=== PATIENT | female | born 1965 | race Hispanic/Latino ===

== ENCOUNTER → 2018-02-03 | Outpatient (CLI) | payer BC | LOC: LAB 08:30 | PROVIDERS: ATTEND Internal Medicine | DX: A04.72 Enterocolitis due to Clostridium difficile, not specified as recurrent (principal); K57.30 Diverticulosis of large intestine without perforation or abscess without bleeding; K30 Functional dyspepsia; K64.1 Second degree hemorrhoids; I10 Essential (primary) hypertension; E66.9 Obesity, unspecified; Z71.3 Dietary counseling and surveillance | CPT/HCPCS: 86677; 86704; 86705; 86708; 86803; 87340 ==

== ENCOUNTER 2024-07-06 12:09 | Emergency (ER) | payer BC, OTHER ==
[~2024-07-06] VITALS: Ht 160 cm; Wt 96.8 kg
[2024-07-06 12:15] VITALS: TEMP 97.9
[2024-07-06 12:36] LABS: BASOPHILS % 0.5 % (0.0-1.0); EOSINOPHILS # (AUTO) 0.5 (0.0-0.4); EOSINOPHILS % 5.4 % (0.0-6.0); HEMOGLOBIN 13.7 g/dL (12.0-16.0); LYMPHOCYTES # (AUTO) 3.1 (1.0-3.2); MEAN CORPUSCULAR HEMOGLOBIN 25.7 pg (28-32); MEAN CORPUSCULAR HGB CONC 32.6 g/dL (31-35); MEAN CORPUSCULAR VOLUME 78.7 fL (81-99); MONOCYTES # (AUTO) 0.6 (0.2-0.8); MONOCYTES % 6.8 % (4.4-11.3); NEUTROPHILS # (AUTO) 4.6 (2.1-6.9); NEUTROPHILS % 52.1 % (38.7-80.0); PLATELET COUNT 275 x10e3/uL (140-360); RED BLOOD COUNT 5.34 x10e6/uL (3.6-5.1); RED CELL DISTRIBUTION WIDTH 14.6 % (11.7-14.4); WHITE BLOOD COUNT 8.74 x10e3/uL (4.8-10.8)
[2024-07-06 12:44] LABS: INR 1.1; PROTHROMBIN TIME 14.9 seconds (11.9-14.5)
[2024-07-06 12:45] LABS: PARTIAL THROMBOPLASTIN TIME 31.6 seconds (23.8-35.5)
[2024-07-06 12:53] LABS: ALBUMIN 4.7 g/dL (3.5-5.0); ALBUMIN/GLOBULIN RATIO 1.3 (0.8-2.0); ANION GAP 16.6 mmol/L (8-16); BILIRUBIN,TOTAL 0.4 mg/dL (0.2-1.2); CALCIUM 9.7 mg/dL (8.4-10.2); CREATININE, SERUM 1.35 mg/dL (0.57-1.11); POTASSIUM 3.6 mmol/L (3.5-5.1); TOTAL PROTEIN 8.4 g/dL (6.5-8.1)
[2024-07-06 13:00] LABS: TROPONIN I 0.001 ng/mL (0-0.300)
[2024-07-06 13:05] VITALS: PULSE 85; RESP 16; O2SAT 100
[2024-07-06] MEDS ORDERED: METHOCARBAMOL750 MG PO (14:18)
== END 2024-07-06 15:05 | disposition home or self-care (01) ==
LOC: ER 13:12
DX: R06.02 Shortness of breath (principal); M79.661 Pain in right lower leg; M62.831 Muscle spasm of calf; I10 Essential (primary) hypertension; E78.5 Hyperlipidemia, unspecified; K76.9 Liver disease, unspecified; J45.909 Unspecified asthma, uncomplicated; D64.9 Anemia, unspecified; F41.9 Anxiety disorder, unspecified; F32.A Depression, unspecified; R94.31 Abnormal electrocardiogram [ECG] [EKG]; Z79.01 Long term (current) use of anticoagulants; Z86.718 Personal history of other venous thrombosis and embolism; Z87.19 Personal history of other diseases of the digestive system
CPT/HCPCS: 36415; 71045; 80053; 82550; 83735; 83880; 84484; 85025; 85379; 85610; 85730; 93005; 93971; 99285